=== PATIENT | female | born 1990 | race African-American/Black ===

== ENCOUNTER 2017-07-10 12:51 | Emergency (ER) | payer SELFPAY ==
[~2017-07-10] VITALS: Ht 152.4 cm; Wt 49.5 kg
[2017-07-10 13:18] VITALS: BP 127/69; PULSE 83; RESP 18; TEMP 98.4; O2SAT 100
[2017-07-10] MEDS ORDERED: AUGM875T3 PO (14:14)
--- NOTE | 2017-07-10 14:17 | PD ---
HPI Chief Complaint: Skin Problem Time Seen by Provider: 14:13 Travel History International Travel<30 days: No Contact w/Intl Traveler<30days: No Traveled to known affect area: No History of Present Illness HPI Examined in the presence of a female nurse. 27-year-old female presents for evaluation of coccygeal pain. She had a similar pain last year and had a pilonidal cyst. She denies any drainage, fevers or chills. She denies any trauma. She has no other complaints at this time. PFSH Past Medical History ?: Not LMP: 06/10/2017 Social History Alcohol Use: No Tobacco Use: No Allergies-Medications (Allergen,Severity, Reaction): Coded Allergies: No Known Allergies (Verified Allergy, Unknown, 07/10/17) Reported Meds & Prescriptions Reported Meds & Active Scripts Active Augmentin (Amoxicillin-Clavulanate) 875-125 Mg Tab 1 Tab PO BID 10 Days Review of Systems General / Constitutional: No: Fever, Chills Gastrointestinal: Positive: Other (Positive for pain in the coccygeal region) Musculoskeletal: Positive: Other (Positive for pain in the coccygeal region) Physical Exam Narrative GENERAL: Well-developed well-nourished female no acute distress SKIN: Warm and dry. There is tenderness to palpation in the coccygeal region. There is no erythema, induration, fluctuance or drainage. GASTROINTESTINAL: Abdomen soft, non-tender, nondistended. Hepatic and splenic margins not palpable. Data Data Last Documented VS Vital Signs Date Time Temp Pulse Resp B/P (MAP) Pulse Ox O2 Delivery O2 Flow Rate FiO2 07/10/17 13:18 98.4 83 18 127/69 (88) 100 MDM Medical Decision Making Medical Screen Exam Complete: Yes Emergency Medical Condition: Yes Medical Record Reviewed: Yes Differential Diagnosis Coccydynia, early pilonidal cyst, pilonidal abscess Narrative Course Physical examination is reassuring, there is no pilonidal cyst or abscess that is drainable at this time. The plan is to discharge the patient with Augmentin , recommended follow-up with a colorectal surgeon on a routine basis. Discussed signs and symptoms that would warrant returning to the emergency room. She stable for discharge. Diagnosis Primary Impression: Coccygeal pain Referrals: Elvia Dudley MD Additional Instructions: Medication as prescribed. Warm soaks several times a day 20 minutes at a time. Follow-up with a colorectal specialist such as Dr. Dudley on a routine basis. Return for any emergent medical conditions. Med/Other Pt SpecificInfo: Prescription(s) given Scripts Amoxicillin-Clavulanate (Augmentin) 875-125 Mg Tab 1 TAB PO BID for Infection for 10 Days, #20 TAB 0 Refills Prov: Anibal Centeno MD 07/10/17 Disposition: 01 DISCHARGE HOME Condition: Stable Carson Jones Jul 10, 2017 14:17
== END 2017-07-10 14:46 | disposition home or self-care (01) ==
LOC: NEPK 12:51
DX: M53.3 Sacrococcygeal disorders, not elsewhere classified (principal)
CPT/HCPCS: 99283